=== PATIENT | female | born 1940 | race Caucasian/White ===

== ENCOUNTER 2017-05-01 15:49 | Emergency (ER) | payer OTHER ==
[~2017-05-01] VITALS: Ht 170.2 cm; Wt 70.8 kg
[2017-05-01] MEDS ORDERED: AMITRIPTYLINE H25 M2 PO (16:00)
[2017-05-01] MEDS ORDERED: PRADAXA150 MG PO (16:00)
[2017-05-01] MEDS ORDERED: NAPROSYN500 MG PO (16:01)
[2017-05-01] MEDS ORDERED: TOPROL XL100 MG PO (16:01)
[2017-05-01] MEDS ORDERED: HYDROXYZINE HCL25 M2 PO (16:01)
[2017-05-01] MEDS ORDERED: PRAVACHOL40 MG PO (16:02)
[2017-05-01] MEDS ORDERED: AUGMENTIN 875-1 EACH PO (18:19)
[2017-05-01] MEDS ORDERED: HYDROCODONE-AP1 EAC6 PO (18:19)
[2017-05-01] MEDS ORDERED: PHENERGAN 25 MG25 M1 PO (18:20)
[2017-05-01 18:49] VITALS: BP 134/60
== END 2017-05-01 18:51 | disposition home or self-care (01) ==
LOC: M.ERS 15:49
DX: S00.03XA Contusion of scalp, initial encounter (principal); J32.9 Chronic sinusitis, unspecified; I10 Essential (primary) hypertension; Z95.0 Presence of cardiac pacemaker; Z85.3 Personal history of malignant neoplasm of breast; Z91.041 Radiographic dye allergy status; W01.198A Fall on same level from slipping, tripping and stumbling with subsequent striking against other object, initial encounter; Y93.89 Activity, other specified; Y92.89 Other specified places as the place of occurrence of the external cause; Y99.8 Other external cause status

== ENCOUNTER 2019-04-11 16:36 | Inpatient (IN) | payer OTHER ==
[~2019-04-11] VITALS: Ht 170.2 cm; Wt 70.3 kg
[~2019-04-11 16:36] MED LIST: AMITRIPTYLINE H25 M2 PO; AUGMENTIN 875-1 EACH PO; HYDROCODONE-AP1 EAC6 PO; HYDROXYZINE HCL25 M2 PO; NAPROSYN500 MG PO; PHENERGAN 25 MG25 M1 PO; PRADAXA150 MG PO; PRAVACHOL40 MG PO; TOPROL XL100 MG PO
[2019-04-11 16:54] VITALS: BP 154/86
[2019-04-11 17:27] LABS: URINE BILIRUBIN NEGATIVE (Negative); URINE BLOOD 3+ (Negative); URINE CLARITY CLEAR; URINE COLOR RED; URINE GLUCOSE-RANDOM NEGATIVE (Negative); URINE KETONES NEGATIVE (Negative); URINE LEUKOCYTES-REFLEX 3+ (Negative); URINE NITRITE-REFLEX NEGATIVE (Negative); URINE PROTEIN 2+ (Negative); URINE SPECIFIC GRAVITY <= 1.005 (1.005-1.030); URINE UROBILINOGEN 0.2 E.U./dl (0.2-1.0)
[2019-04-11 17:41] LABS: BACTERIA-REFLEX >30 Many /HPF (None Seen); SQUAMOUS 0-3 Few /LPF (0-3); URINE RBC >20 Many /HPF (0-2)
[2019-04-11 17:42] LABS: CASTS None Seen /LPF (None Seen); CRYSTALS None Seen /LPF (None Seen); MUCUS None Seen strn/LPF (None Seen); URINE WBC-REFLEX >25 Many /HPF (0-5)
[2019-04-11 17:43] LABS: WBC CLUMPS Few (None Seen)
[2019-04-11 18:08] LABS: ABSOLUTE EOSINOPHILS 0.2 thou/uL (0.0-0.7); ABSOLUTE NEUTROPHILS 6.3 thou/uL (1.6-8.1); BASOPHILS 0.4 %; HEMATOCRIT 37.6 % (37.0-47.0); HEMOGLOBIN 12.7 gm/dL (12.0-15.0); LYMPHOCYTES 20.8 %; MCH 29.8 pg (26.0-34.0); MCHC 33.9 g/dL (28.0-37.0); MONOCYTES 10.2 %; MPV 8.8 fl. (7.2-11.1); NUCLEATED RBCS 0 /100WBC; PLATELET COUNT* 228 thou/uL (150-400); POLYS 66.6 %; RBC 4.27 mil/uL (4.20-5.00); RDW-CV 14.8 % (10.5-14.5); WBC 9.5 thou/uL (4.0-11.0)
[2019-04-11 18:19] LABS: CREATININE 1.4 mg/dL (0.6-1.3); POTASSIUM 4.3 mmol/L (3.5-5.1)
[2019-04-11 18:20] LABS: APTT 58.2 Seconds (25.0-31.3); INR 1.3; PROTIME 13.4 Seconds (9.20-11.50)
[2019-04-11 18:23] LABS: ALBUMIN 3.2 g/dL (3.4-5.0); TOTAL BILIRUBIN 0.3 mg/dL (<0.1-1.0); TOTAL PROTEIN 7.4 g/dL (6.4-8.2)
[2019-04-11 20:28] VITALS: BP 154/86
[2019-04-11 20:45] VITALS: BP 151/85
[2019-04-12 05:39] LABS: ABSOLUTE BASOPHILS 0.1 thou/uL (0.0-0.2); ABSOLUTE EOSINOPHILS 0.2 thou/uL (0.0-0.7); ABSOLUTE LYMPHOCYTES 1.8 thou/uL (0.8-5.3); ABSOLUTE MONOCYTES 0.8 thou/uL (0.0-1.2); ABSOLUTE NEUTROPHILS 6.7 thou/uL (1.6-8.1); BASOPHILS 0.6 %; EOSINOPHILS 1.6 %; HEMATOCRIT 33.3 % (37.0-47.0); HEMOGLOBIN 11.4 gm/dL (12.0-15.0); LYMPHOCYTES 18.5 %; MCH 29.5 pg (26.0-34.0); MCHC 34.2 g/dL (28.0-37.0); MCV 86.3 fL (80.0-100.0); MONOCYTES 8.4 %; MPV 8.4 fl. (7.2-11.1); NUCLEATED RBCS 0 /100WBC; PLATELET COUNT* 235 thou/uL (150-400); POLYS 70.9 %; RBC 3.85 mil/uL (4.20-5.00); RDW-CV 14.8 % (10.5-14.5); WBC 9.5 thou/uL (4.0-11.0)
[2019-04-12 05:53] LABS: CALCIUM 8.5 mg/dL (8.5-10.1); CREATININE 1.3 mg/dL (0.6-1.3); POTASSIUM 4.3 mmol/L (3.5-5.1)
--- NOTE | 2019-04-12 05:53 | NUR ---
PATIENT ARRIVED ON FLOOR FROM THE ER. PATIENT ADMISSION HISTORY AND ASSESSMENT WAS COMPLETED CHARTED. IV FLUIDS WERE STARTED AT 100 ML/HR. WILL CONTINUE TO MONITOR.
[2019-04-12 07:20] VITALS: BP 134/64
[2019-04-12 11:35] VITALS: BP 134/64
--- NOTE | 2019-04-12 11:36 | EKG ---
[place] [address] ELECTROCARDIOGRAM REPORT Name: BETSEY SPENCE Room: [address] ADM IN M.R.#: [id number] Admission: 04/11/19 Attend Phys: Moody Daniel, Discharge: Date of : 42 Date of Service: 04/11/19 180 Report #: [id number] THIS REPORT FOR: //name// [facility] ED Test Date: 2019-04-11 Test Time: 18:07:18 Pat Name: BETSEY SPENCE Department: Room: [facility] Gender: F Automotive Light Mechanic: ALVINA : 1940 Requested By: Leeann Gonzalez Order Number: [id number] MD: Bob Damon Measurements Intervals [place] Rate: 60 P: [place]: 169 QRS: -35 QRSD: 98 T: 71 QT: 434 QTc: 434 Interpretive Statements Atrial-paced rhythm first degree A-V block Left axis deviation No previous ECG available for comparison Electronically Signed On 04-12-2019 11:35:44 VETERINARY VIROLOGIST by Bob Damon [email or web address] <ELECTRONICALLY SIGNED> By: Bob Damon MD, [facility] 04/12/19 1135 1807 1807 Bob Damon MD, [facility] /EPI
--- NOTE | 2019-04-12 12:08 | NUR ---
CM ASSESSMENT: PT LIVES AT HOME WITH HER . SHE IS INDEPENDENT WITH ALL ADLS. 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 PT HAS NO DME NEEDS OR HH NEEDS. CM WILL CONTINUE TO FOLLOW IF NEEDED
[2019-04-12 15:30] VITALS: BP 127/62
--- NOTE | 2019-04-12 16:07 | NUR ---
PATIENT UP WITH SBA. NO COMPLAINTS OF PAIN. IVF AND SCHED ABX INFUSED ORDERED. UROLOGY HERE THIS AM TO SEE PATIENT, WILL SEE OUTPATIENT FOR FURTHER FOLLOW UP. HOME PRADAXA BROUGHT IN FOR PATIENT USE. GOOD APPETITE. AWAITING URINE CULTURE RESULTS.
[2019-04-12 21:30] VITALS: BP 146/72
--- NOTE | 2019-04-13 05:26 | NUR ---
PATIENT SLEPT MOST OF THE NIGHT. IV FLUIDS CONTINUE TO INFUSE AT 100 ML/HR. PAITENT HAD NO COMPLAINS OF PAIN. PATIENT COULD POSSIBLY DISCHARGE TODAY. WILL CONTINUE TO MONITOR.
[2019-04-13 07:55] VITALS: BP 144/66
[2019-04-13 16:00] VITALS: BP 144/65
--- NOTE | 2019-04-13 17:27 | NUR ---
PATIENT UP AD DAX IN ROOM. BM NOTED THIS AM, PATIENT STATED SHE THOUGHT SHE COULD SEE BLOOD IN STOOL. THIS NURSE OBSERVED AND DID NOT SEE ANY BLOOD. PATIENT CONTINUES TO HAVE BLOOD TINGED URINE, DARK YELLOW. DR. MCCABE NOTIFIED THAT PATIENTS VERY CONCERNED. IV SL. SCHED ABX CONTINUE ORDERED. AWAITING URINE CULTURE RESULTS. PATIENT BLADDER SCANNED AFTER VOID AND 0MLS IN BLADDER NOTED.
[2019-04-13 21:30] VITALS: BP 170/74
--- NOTE | 2019-04-14 05:22 | NUR ---
PATIENT SLEPT MOST OF THE NIGHT. IV REMAINS SALINE LOCKED. PATIENT WAS COMPLAINING OF BEING MORE WHEEZY WAS CALLED AND BREATHING TREAMENT. PATIENT IS POSSIBLY GOING HOME TODAY. WILL CONTINUE TO MONITOR.
[2019-04-14 07:45] VITALS: BP 159/67
--- NOTE | 2019-04-14 08:57 | NUR ---
I have reviewed the documentation by NIKOLAI LAZCANO from 04/13/19 to 04/13/19 and I concur with it. REBECCA PAREDES
[2019-04-14 11:01] VITALS: BP 134/64
[2019-04-14] MEDS ORDERED: TRAMADOL 50 MG50 MG PO (11:09)
[2019-04-14] MEDS ORDERED: CEFUROXIME500 MG PO (11:10)
--- NOTE | 2019-04-14 14:45 | NUR ---
PATIENT ALERT AND ORIENTED X4. PATIENT AMBULATED IN ROOM THROUGHOUT SHIFT. ALL SAFETY MEASURES MAINTAINED. DISCHARGE PAPERWORK REVIEWED AND GIVEN TO PATIENT. PAITENT AND SPOUSE DENY FURTHER NEEDS AND QUESTIONS AT THIS TIME. IV REMOVED. DR. MCCABE NOTIFIED OF CT RESULTS. INSTRUCTED PATIENT OK TO DISCHARGE.
[2019-04-14 14:47] VITALS: BP 134/64
== END 2019-04-14 14:45 | disposition home or self-care (01) | DRG 690 ==
LOC: M.ERS 16:36 → M.TBA-ER 18:33 → M.3W 18:33
PROVIDERS: Nurse Practitioner Family; Physician Assistant; ADMIT Internal Medicine
DX: N10 Acute pyelonephritis (principal); R31.0 Gross hematuria; N17.9 Acute kidney failure, unspecified; I10 Essential (primary) hypertension; N28.82 Megaloureter; G62.9 Polyneuropathy, unspecified; N28.1 Cyst of kidney, acquired; N20.0 Calculus of kidney; I48.91 Unspecified atrial fibrillation; E86.0 Dehydration; Z95.0 Presence of cardiac pacemaker; Z85.3 Personal history of malignant neoplasm of breast; Z79.899 Other long term (current) drug therapy; Z79.01 Long term (current) use of anticoagulants; Z91.041 Radiographic dye allergy status